=== PATIENT | male | born 1980 | race American Indian/Alaskan Native ===

== ENCOUNTER 2019-03-12 15:47 | Emergency (ER) | payer SELFPAY ==
[2019-03-12 16:04] VITALS: BP 145/104
--- NOTE | 2019-03-12 18:53 | Emergency Department Report ---
ED Rash HPI - HPI Chief Complaint: Skin Rash Stated Complaint: POSS BED BUGS Time Seen by Provider: 03/12/19 18:43 Duration: 1 wk ago Location: Other (right leg, left forearm, left upper lid) Rash Symptoms: Yes Itching, No Facial Swelling, No Tongue/Oral Swelling, No Breathing Difficulties, No Choking Sensation, No Wheezing/Dyspnea, No Peeling, No Blistering, No Fever, No Lightheaded, No Malaise, No Myalgias Severity: mild Other History: pt presents to ED with concern for bed bug bites. He states he was in and out of a hotel called [employer] for about 1-2 weeks. he states he started noticing bumps on his right lower leg, and left elbow and left upper lid about 1 week ago. He states they are pruritic in nature. denies pain.He states his friend with whom he was staying with went to a clinic and was dx with bed bugs. He reports no other symptoms at this time. ED Review of Systems ROS: Stated complaint: POSS BED BUGS Other details as noted in HPI Comment: All other systems reviewed and negative Skin: as per HPI, pruritus ED Past Medical Hx - Past Medical History Previous Medical History?: No - Surgical History Past Surgical History?: No - Medications Home Medications: Home Medications Medication Instructions Recorded Confirmed Last Taken Type Hydrocortisone 0.5% 1 applicatio TP BID #1 tube 03/12/19 Unknown Rx [Hydrocortisone 0.5% CREAM] diphenhydrAMINE [Benadryl CAP] 25 mg PO Q6HR PRN #30 capsule 03/12/19 Unknown Rx Rash Exam - Exam General: Vital signs noted. No distress. Alert and acting appropriately. HEENT: No Periorbital Edema, No Conjuctival Injection, No Chemosis, No Perioral Edema, No Tongue Edema, No Uvular Edema, No Compromised Airway, No Drooling Lungs: Yes Good Air Exchange, No Wheezes, No Ronchi, No Stridor, No Cough, No Labored Respirations, No Retractions, No Use of Accessory Muscles, No Other Abnormal Lung Sounds Heart: No Regular, No Murmur Skin: Yes Other (mild erythematous maculopalar excoriated area with crusting noted to anterior right lower leg. Small erythematous papular area noted left forerm and left upper lid. No secondary bacterial infection. ) ED Course Vital Signs 03/12/19 15:56 Temperature 98.6 F Pulse Rate 71 Respiratory 16 Rate Blood Pressure 145/104 O2 Sat by Pulse 96 Oximetry Critical care attestation.: If time is entered above; I have spent that time in minutes in the direct care of this critically ill patient, excluding procedure time. ED Disposition Clinical Impression: Insect bite Qualifiers: Encounter type: initial encounter Bed bug bite Qualifiers: Encounter type: initial encounter Qualified Code(s): W57.XXXA - Bitten or stung by nonvenomous insect and other nonvenomous arthropods, initial encounter Disposition: DC-01 TO HOME OR SELFCARE Is pt being admited?: No Does the pt Need Aspirin: No Condition: Stable Instructions: Insect Bite or Sting (ED) Additional Instructions: Recommend using Benadryl to help with Itching and you can apply small amounts of hydrocortisone cream to areas. You can get these from over the counter. Prescriptions: diphenhydrAMINE [Benadryl CAP] 25 mg PO Q6HR PRN #30 capsule PRN Reason: Itching Hydrocortisone 0.5% [Hydrocortisone 0.5% CREAM] 1 applicatio TP BID #1 tube Time of Disposition: 18:56
== END 2019-03-12 19:41 | disposition home or self-care (01) ==
LOC: ED 15:47
DX: S80.861A Insect bite (nonvenomous), right lower leg, initial encounter (principal); S00.262A Insect bite (nonvenomous) of left eyelid and periocular area, initial encounter; S50.862A Insect bite (nonvenomous) of left forearm, initial encounter; Z79.899 Other long term (current) drug therapy; W57.XXXA Bitten or stung by nonvenomous insect and other nonvenomous arthropods, initial encounter; Y93.89 Activity, other specified; Y92.89 Other specified places as the place of occurrence of the external cause; Y99.8 Other external cause status